=== PATIENT | male | born 2005 | race Caucasian/White ===

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

== ENCOUNTER 2024-09-29 13:13 | Outpatient (BNV) | payer OTHER, SELFPAY | END 2024-09-29 14:20 | PROVIDERS: Admitting Provider Psychiatry & Neurology Psychiatry; Responsible Provider Registered Nurse; Visit Provider Internal Medicine Cardiovascular Disease | DX: Z13.6 Encounter for screening for cardiovascular disorders (principal) | CPT/HCPCS: 93010 ==

== ENCOUNTER 2024-09-29 13:13 | Inpatient (IN) | payer OTHER, SELFPAY ==
--- NOTE | 2024-09-29 | ECG_ITS ---
Test Reason : PSYCHIATRIC MEDICATIONS Blood Pressure : */* mmHG Vent. Rate : 64 BPM Atrial Rate : 64 BPM P-R Int : 124 ms QRS Dur : 86 ms QT Int : 360 ms P-R-T Axes : -17 83 49 degrees QTcB Int : 371 ms Normal sinus rhythm with sinus arrhythmia Normal ECG When compared with ECG of 17-Mar-2023 11:50, Nonspecific T wave abnormality no longer evident in Inferior leads Referred By: Sharmila Silva Electronically Signed By: Giovany Cooper
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
--- OUTSIDE RECORDS SUMMARY | 2024-09-29 14:40 | XMS_ITS | Clinical Summary ---
Author Organization [facility] Address [address] [place] [address] Care Team Providers Care Technical Services Analyst Name Role Phone Unavailable Primary Care Provider Unavailabl e Allergies Active Allergy Reactions Criticality Noted Date Comments Risperidone 03/28/2023 Sexual dysfunction Quetiapine Other (See Comments) 04/02/2023 Aggression/anger Medications Medication Sig Dispensed Refills Start Date End Date Status Lidocaine 4 %Indications:Pain Place 1 patch onto the skin daily. 30 patch 0 04/14/2023 Active terbutaline (BRETHINE) 5 MG tabletIndications:Non- ischemic priapism Take 1 tablet (5 mg total) by mouth daily. 0 04/07/2023 Active amphetamine-dextroamph etamine (ADDERALL XR, 30MG,) 30 MG 24 hr capsuleIndications:Att ention Deficit Hyperactivity Disorder Take 1 capsule (30 mg total) by mouth daily. 30 capsule 0 05/15/2023 Active ARIPiprazole (ABILIFY) 10 MG tabletIndications:Estelle r Depressive Disorder Take 1 tablet (10 mg total) by mouth daily. 30 tablet 0 05/16/2023 Active hydrOXYzine (ATARAX) 50 MG tabletIndications:Anxi ety Take 1 tablet (50 mg total) by mouth 3 (three) times a day as needed for anxiety. 30 tablet 0 05/15/2023 Active citalopram (CeleXA) 10 MG tabletIndications:Estelle r Depressive Disorder Take 1 tablet (10 mg total) by mouth daily. 30 tablet 0 05/16/2023 Active melatonin 3 MG TABS tabletIndications:Inso mnia Take 1 tablet (3 mg total) by mouth every night at bedtime. 30 tablet 0 05/15/2023 Active Active Problems Problem Noted Date Diagnosed Date MDD (major depressive disord er), recurrent episode, moderate 05/09/2023 Bipolar disorder, current episode mixed, moderat e 04/13/2023 ADHD (attention deficit hype ractivity disorder), predominantly hyperactive impulsive type 04/03/2023 Cannabis use disorder 04/03/2023 Intermittent explosive disorder 03/29/2023 Aggression 03/28/2023 Resolved Problems Problem Noted Date Diagnosed Date Resolved Date Suicidal behavior with attempted self-injury 05/15/2023 Social History Tobacco Use Types Packs/Day Years Used Date Smoking Tobacco: Never Smokeless Tobacco: Never Tobacco Cessation:Counseling Given: Not Answered Alcohol Use Standard Drinks/Week Comments Yes 1 (1 standard drink = 0.6 oz pur e alcohol) Sex and Gender Information Value Date Recorded Sex Assigned at Male 03/27/2023 2:33 PM EST Gender Identity Male 03/27/2023 2:33 PM EST Sexual Orientation Not on file Job Start Date Occupation Industry Not on file Not on file Not on file Last Filed Vital Signs Vital Sign Reading Time Taken Comments Blood Pressure 135/83 05/15/2023 7:46 AM EST Pulse 80 05/15/2023 7:46 AM EST Temperature 36.4 ??C (97.6 ??F) 05/15/2023 7:44 AM ES T Respiratory Rate 16 05/15/2023 7:44 AM EST Oxygen Saturation 99% 05/15/2023 7:44 AM EST Inhaled Oxygen Concentration - - Weight 86.6 kg (191 lb) 05/14/2023 10:41 AM EST Height 165.1 cm (5' 5 ) 05/14/2023 11:32 AM EST Body Mass Index 31.78 05/14/2023 10:41 AM EST Plan of Treatment Health Maintenance Due Date Last Done Comments Hepatitis C Screening 2004 COVID-19 Vaccine (#1) 2004 Depression Screening 2016 Preventative Health Evaluation 2022 Influenza Vaccine (Season Ended) 2024 03/31/2021, 03/31/2021, 03/29/2020, Additional history exists DTap / Tdap / Td (7 - Td or Tdap) 02/07/2026 02/08/2016, 05/21/2008, 05/07/2006, Additional history exists Pneumococcal Vaccine Completed 05/07/2006, 11/23/2005, 2004, Additional history exists Hepatitis B Vaccines Completed 05/21/2008, 2004, 2004, Additional history exists RSV Ped < 20 months Aged Out No longe r eligible based on patient's age to complete this topic Advance Directives For more information, please contact: [phone] Latest Code Status on File Code Status Date Activated Date Inactivated Comments Full Code 05/07/2023 4:18 PM 05/15/2023 8:52 PM This code status was ascertained in the following way: per unit protocol. Code Status History Code Status Date Activated Date Inactivated Comments Full Code 03/28/2023 1:51 PM 04/13/2023 7:52 PM Thi s code status was ascertained in the following way: per unit protocol.
--- NOTE | 2024-09-29 15:24 | HO.PM.IMCN ---
History of Present Illness Data of Consult Service Date: 09/29/24 Primary Care Provider: Unknown Physician HPI Reason for consult: Medical H&P 19-year-old male with TBI/schizoaffective disorder bipolar type,GERD, Depressive DO, was admitted to [facility] with paranoia, overwhelming and irritable thoughts. Now admitted to inpatient psych for continued care. He has no medical concerns at this time, his BNP and CBC were within normal limits. QTC within normal limits EKG with normal sinus rhythm. On exam he is alert and cooperative, denies any shortness of breath, chest pain, dizziness lightheadedness or other concerning symptoms. Review of Systems Review of Systems: Denies any shortness of breath, chest pain, dizziness, lightheadedness, abdominal pain or discomfort, nausea vomiting or diarrhea [facility] Medical History (Updated 03/30/23 @ 00:03 by Meghan Lee) Bipolar I disorder Priapism TBI (traumatic brain injury) Schizoaffective disorder, bipolar type Social History Household Members: Other Household Members Other:: PT lives at longterm with peers Housing: Other Housing Other:: Long-Term Do you presently have visiting nurse or other home services: No Patient Tobacco Use Status: Never used Tobacco e-Cigarette/Vaping Use: Never Used Second Hand Smoke Exposure: No Substance Use Type: Marijuana Advance Directives: No Advance Directives Information Provided: Yes service: No Sexual orientation: Did not discuss Meds Allergies Allergy/AdvReac Type Severity Reaction Status Date / Time risperidone Allergy Unknown Verified 03/11/23 13:21 trazodone AdvReac Severe priaprism Unverified 03/15/23 16:51 priapism AdvReac Severe priapism Uncoded 03/13/23 17:13 Active Medications: Current Medications Acetaminophen (Acetaminophen 325 Mg Tablet) 650 mg PO Q6H PRN PRN Reason: Headache/Pain, Scale 1-10 Al Hydroxide/Mg Hydroxide (Magnesium Hydrox/Alum Hydrox 30 Ml Oral.Susp) 30 ml PO Q6H PRN PRN Reason: Heartburn/Nausea Hydroxyzine HCl (Hydroxyzine Hcl 25 Mg Tablet) 25 mg PO Q6H PRN PRN Reason: mild anxiety Magnesium Hydroxide (Milk Of Magnesia 30 Ml Oral.Susp) 30 ml PO DAILY PRN PRN Reason: Constipation Nicotine (Nicotine 21 Mg Patch.Td24) 21 mg TRANSDERMA DAILY SYLWIA Nicotine Polacrilex (Nicotine Polacrilex 2 Mg Gum) 4 mg BUCCAL Q2H PRN PRN Reason: Nicotine Cravings Olanzapine (Olanzapine 5 Mg Tablet) 5 mg PO Q4H PRN PRN Reason: agitation Home Medications ?Medication ?Instructions ?Recorded ?Confirmed ?Last Taken ?Type melatonin 3 mg tablet 3 mg PO BEDTIME PRN insomnia 03/11/23 03/11/23 Unknown History Physical Exam Vital Signs and Narrative: CONST: Alert and oriented, in NAD. Well nourished. Anxious HEENT: Normocephalic, atraumatic, MMM, Eyes clear, Neck supple RESP: Lungs clear, RRR even and regular HEART:,RRR, S1, S2, no edema GI:Abdomen Soft NT, ND. + BS times four :Deferred SKIN: Warm dry and intact, no visible lesions or rashes NEURO:CN II-XII Intact bilaterally, Sensation intact. Speech clear PSYCH: Flat affect, quiet Assessment and Plan (1) Bipolar I disorder: Status: Acute Plan Schizoaffective disorder/depression/suicidal ideation Plan per PsychiatryThank you for allowing me to participate in the care of this patient. Signing off at this time. Please reconsult of any acute concerns or issues arise
[2024-09-29 16:34] VITALS: BP 134/78; PULSE 70; RESP 16; TEMP 36.5; O2SAT 96
[2024-09-29 16:38] VITALS: BMI 33.5
[2024-09-29] MEDS: hydrOXYzine HCL 25 MG TABLET PO (17:26)
--- NOTE | 2024-09-29 18:23 | PC.ADMIT ---
Jean Claude is a 19 y/o male was admitted to M[facility]? at 1325 from [facility] on a 3day up 10/02 for treatment of Schizophrenia spectrum. Pt currently lives with his family.?? Per Crisis pt was having increased irritability and racing/overwhelming thoughts.? Pt reported that he had an argument with his mom and he stated that he began to yell and and said he was going to hurt himself. His mother reported that he has been medication adherent for a month. Threatened to jump off a bridge, then began throwing things in his room.? Pt reported ?I said a lot of things I didn?t mean. I know that it scared my family and I wish I didn?t do it. I did throw something out of anger but it was glass.? A&O x4. Pt was calm and cooperative with the admission process.? Mood is depressed.? Affect is anxious.? Hx of SI but no current SI. Pt denied HI. Reported he would be able to come to staff if thoughts arise.? Pt denied AVH at this time. Thought Process linear and organized.? Pt reported a recent decrease in appetite and sleep in the past few weeks. No reported weight loss.? Pt does not use tobacco or ETOH.? Tox Screen positive for THC and amphetamine, pt currently prescribed Adderall.? Last used Marijuana prior to admission.? Recent stressor - Financial issues? - trying to help contribute to family by doing [employer].? Medical Issues - GERD. Hx of appendectomy 2016.? Glucose 125 Pt is currently on Aristada injectable (441 mg / 1.6 ml) monthly, last given was 07/21/24. Pt reported that ?I missed that appointment on sunday because my dad and I got the dates mixed up.? Currently sees Raffaele Khalil at [facility].? Pt was placed on 15 minute check for safety.? Pt reported IPLOC on M5 about 2 years ago.? Allergies to quetiapine and risperdone.? Pt skin check unremarkable.
[2024-09-29 20:01] VITALS: BP 122/80; PULSE 71; TEMP 36.4; O2SAT 96
[2024-09-29] MEDS: OLANZapine 5 MG TABLET PO (22:09)
[2024-09-29] MEDS: Acetaminophen 325 MG TABLET 650 MG PO (22:47)
[2024-09-30 08:00] VITALS: BP 120/68; PULSE 98; RESP 14; O2SAT 99
[2024-09-30 08:42] VITALS: BP 120/68
[2024-09-30] MEDS: cloNIDine HCL 0.1 MG TABLET PO (08:42)
[2024-09-30] MEDS: Escitalopram Oxalate 5 MG TABLET PO (08:42)
[2024-09-30] MEDS: Dextroamphetamine/Amphetamine XR 10 MG CAP.ER.24H 30 MG PO (08:43)
[2024-09-30 08:55] LABS: Alanine Aminotransferase 25 U/L (0-40); Alkaline Phosphatase 80 U/L (39-117); Anion Gap 11 (12-20); Aspartate Amino Transferase 29 U/L (5-37); Bilirubin Total 0.4 mg/dL (0.0-1.0); Blood Urea Nitrogen 20 mg/dL (9-16); Carbon Dioxide 30 mmol/L (22-29); Chloride 105 mmol/L (96-108); Cholesterol 156 mg/dL (<200); Creatinine Clr Calc Pharmacy 154.9; Estimated Glomerular Filt Rate > 60; Glucose Random 82 mg/dL (60-115); HDL Cholesterol 35 mg/dL (>40); LDL Cholesterol Calculated 95 mg/dL (<100); Potassium 4.3 mmol/L (3.3-5.1); Sodium 142 mmol/L (135-145); Total Protein 7.7 g/dL (6.5-8.0); Triglycerides 134 mg/dL (<150)
--- NOTE | 2024-09-30 08:55 | HO.PSYCHPN ---
Subjective Subjective Date of Service: 09/30/24 Reason For Visit: crisis Subjective Notes: 3 Day Interim History: Active on unit, social with peers. attending groups. pt received Aristada IM today; denies any side effects. Patient reports feeling okay today; he reports sleeping well last night. denies SI/HI/VH/AH. 3 day up on 10/02/24. Continue current tx plan. Medication Compliance: Yes Side effects from medications: No Attending Groups: Yes Mental Status Exam Mental Status Exam Narrative: Pt is alert and oriented; behavior is cooperative and calm; dressed in casual attire; mood is described as okay ; eye contact appropriate; Speech is normal rate, volume and not pressured; thought process is organized; Thought content is on discharge; denies SI/HI/VH/AH. Diagnostics Vital Signs (24Hr): Vital Signs - 24 hr 09/29/24 16:34 09/29/24 20:01 09/30/24 08:42 Temperature 97.7 F 97.5 F Pulse Rate 70 71 Respiratory Rate 16 Blood Pressure 134/78 122/80 120/68 Pulse Oximetry 96 96 Oxygen Delivery Method Room Air Room Air BMI result Body Mass Index 33.5 Labs 09/30/24 08:04 Medications Medications Current Medications Acetaminophen (Acetaminophen 325 Mg Tablet) 650 mg PO Q6H PRN PRN Reason: Headache/Pain, Scale 1-10 Last Admin: 09/29/24 22:47 Dose: 650 mg Al Hydroxide/Mg Hydroxide (Magnesium Hydrox/Alum Hydrox 30 Ml Oral.Susp) 30 ml PO Q6H PRN PRN Reason: Heartburn/Nausea Amphetamine/Dextroamphetamine (Dextroamphetamine/Amphetamine Xr 10 Mg Cap.Er.24h) 30 mg PO DAILY SYLWIA Last Admin: 09/30/24 08:43 Dose: 30 mg Clonidine HCl (Clonidine Hcl 0.1 Mg Tablet) 0.1 mg PO DAILY SYLWIA; Protocol Last Admin: 09/30/24 08:42 Dose: 0.1 mg Escitalopram Oxalate (Escitalopram Oxalate 5 Mg Tablet) 5 mg PO DAILY SYLWIA Last Admin: 09/30/24 08:42 Dose: 5 mg Hydroxyzine HCl (Hydroxyzine Hcl 25 Mg Tablet) 25 mg PO Q6H PRN PRN Reason: mild anxiety Last Admin: 09/29/24 17:26 Dose: 25 mg Magnesium Hydroxide (Milk Of Magnesia 30 Ml Oral.Susp) 30 ml PO DAILY PRN PRN Reason: Constipation Nicotine (Nicotine 21 Mg Patch.Td24) 21 mg TRANSDERMA DAILY SYLWIA Nicotine Polacrilex (Nicotine Polacrilex 2 Mg Gum) 4 mg BUCCAL Q2H PRN PRN Reason: Nicotine Cravings Non-Formulary Medication (Aripiprazole Lauroxil [Aristada]) 441 mg IM Q28D SYLWIA Olanzapine (Olanzapine 5 Mg Tablet) 5 mg PO Q4H PRN PRN Reason: agitation Last Admin: 09/29/24 22:09 Dose: 5 mg Allergies Allergies Allergy/AdvReac Type Severity Reaction Status Date / Time risperidone Allergy Unknown Verified 03/11/23 13:21 trazodone AdvReac Severe priaprism Verified 09/29/24 17:15 Assessment & Plan Assessment & Plan (1) Bipolar I disorder: Status: Acute Code(s): F31.9 - Bipolar disorder, unspecified (2) PTSD (post-traumatic stress disorder): Status: Acute Code(s): F43.10 - Post-traumatic stress disorder, unspecified (3) TBI (traumatic brain injury): Status: Acute Code(s): S06.9XAA - Unspecified intracranial injury with loss of consciousness status unknown, initial encounter Plan Patient is a 19-year-old male with history of bipolar disorder, PTSD, TBI who self presented to ER due to irritability and overwhelming thoughts secondary to life stressors. Plan: CV 15 minute safety checks Continue home medications obtain collateral encourage groups discharge planning 09/30: Active on unit, social with peers. attending groups. pt received Aristada IM today; denies any side effects. Patient reports feeling okay today; he reports sleeping well last night. denies SI/HI/VH/AH. 3 day up on 10/02/24. Continue current tx plan. Patient educated on: diagnosis and medication risk/benefits Reason for continued inpatient stay Substantial Risk for: med/psych decompensation Time Spent With Patient Time: Total time managing care of this patient today _20___ minutes.
[2024-09-30 08:57] LABS: Estimated Average Glucose 100 mg/dL; Hemoglobin A1c % 5.1 % (<6.0); Total Hemoglobin (HGBA1C) 4205.9463 umol/L
[2024-09-30] MEDS: hydrOXYzine HCL 25 MG TABLET PO (14:25)
[2024-09-30] MEDS: OLANZapine 5 MG TABLET PO (17:45)
[2024-10-01 08:00] VITALS: BP 119/81; PULSE 59; RESP 16; TEMP 36.3; O2SAT 99
[2024-10-01] MEDS: Dextroamphetamine/Amphetamine XR 10 MG CAP.ER.24H 30 MG PO (08:32)
[2024-10-01] MEDS: cloNIDine HCL 0.1 MG TABLET PO (08:32)
[2024-10-01] MEDS: Escitalopram Oxalate 5 MG TABLET PO (08:32)
--- NOTE | 2024-10-01 09:22 | HO.PSYCHPN ---
Subjective Subjective Date of Service: 10/01/24 Reason For Visit: crisis Subjective Notes: 3 Day Interim History: Active on unit, social with peers. attending groups. Patient reports feeling good today; pt stated, I'm feeling better and ready to go home . denies SI/HI/VH/AH. 3 day up on 10/02/24. Pt reports he plans on following up with his outpatient providers. Medication Compliance: Yes Side effects from medications: No Attending Groups: Yes Mental Status Exam Mental Status Exam Narrative: Pt is alert and oriented; behavior is cooperative and calm; dressed in casual attire; mood is described as good ; eye contact appropriate; Speech is normal rate, volume and not pressured; thought process is organized; Thought content is on discharge; denies SI/HI/VH/AH. Diagnostics Vital Signs (24Hr): Vital Signs - 24 hr 10/01/24 08:00 Temperature 97.4 F Pulse Rate 59 Respiratory Rate 16 Blood Pressure 119/81 Pulse Oximetry 99 Oxygen Delivery Method Room Air BMI result Body Mass Index 33.5 Labs 09/30/24 08:04 Labs: Laboratory Results - last 48 hr 09/30/24 08:04 Sodium 142 Potassium 4.3 Chloride 105 Carbon Dioxide 30 H Anion Gap 11 L BUN 20 H Creatinine 0.79 Estim Creat Clear Calc 154.9 Estimated GFR > 60 Random Glucose 82 Estimat Average Glucose 100 Hemoglobin A1c % 5.1 Calcium 10.0 Total Bilirubin 0.4 AST 29 ALT 25 Alkaline Phosphatase 80 Total Protein 7.7 Albumin 5.0 Triglycerides 134 Cholesterol 156 LDL Cholesterol, Calc 95 HDL Cholesterol 35 L Medications Medications Current Medications Acetaminophen (Acetaminophen 325 Mg Tablet) 650 mg PO Q6H PRN PRN Reason: Headache/Pain, Scale 1-10 Last Admin: 09/29/24 22:47 Dose: 650 mg Al Hydroxide/Mg Hydroxide (Magnesium Hydrox/Alum Hydrox 30 Ml Oral.Susp) 30 ml PO Q6H PRN PRN Reason: Heartburn/Nausea Amphetamine/Dextroamphetamine (Dextroamphetamine/Amphetamine Xr 10 Mg Cap.Er.24h) 30 mg PO DAILY SYLWIA Last Admin: 10/01/24 08:32 Dose: 30 mg Clonidine HCl (Clonidine Hcl 0.1 Mg Tablet) 0.1 mg PO DAILY SYLWIA; Protocol Last Admin: 10/01/24 08:32 Dose: 0.1 mg Escitalopram Oxalate (Escitalopram Oxalate 5 Mg Tablet) 5 mg PO DAILY SYLWIA Last Admin: 10/01/24 08:32 Dose: 5 mg Hydroxyzine HCl (Hydroxyzine Hcl 25 Mg Tablet) 25 mg PO Q6H PRN PRN Reason: mild anxiety Last Admin: 09/30/24 14:25 Dose: 25 mg Magnesium Hydroxide (Milk Of Magnesia 30 Ml Oral.Susp) 30 ml PO DAILY PRN PRN Reason: Constipation Nicotine Polacrilex (Nicotine Polacrilex 2 Mg Gum) 4 mg BUCCAL Q2H PRN PRN Reason: Nicotine Cravings Olanzapine (Olanzapine 5 Mg Tablet) 5 mg PO Q4H PRN PRN Reason: agitation Last Admin: 09/30/24 17:45 Dose: 5 mg Allergies Allergies Allergy/AdvReac Type Severity Reaction Status Date / Time risperidone Allergy Unknown Verified 03/11/23 13:21 trazodone AdvReac Severe priaprism Verified 09/29/24 17:15 Assessment & Plan Assessment & Plan (1) Bipolar I disorder: Status: Acute Code(s): F31.9 - Bipolar disorder, unspecified (2) PTSD (post-traumatic stress disorder): Status: Acute Code(s): F43.10 - Post-traumatic stress disorder, unspecified (3) TBI (traumatic brain injury): Status: Acute Code(s): S06.9XAA - Unspecified intracranial injury with loss of consciousness status unknown, initial encounter Plan Patient is a 19-year-old male with history of bipolar disorder, PTSD, TBI who self presented to ER due to irritability and overwhelming thoughts secondary to life stressors. Plan: CV 15 minute safety checks Continue home medications obtain collateral encourage groups discharge planning 09/30: Active on unit, social with peers. attending groups. pt received Aristada IM today; denies any side effects. Patient reports feeling okay today; he reports sleeping well last night. denies SI/HI/VH/AH. 3 day up on 10/02/24. Continue current tx plan. 10/01: Active on unit, social with peers. attending groups. Patient reports feeling good today; pt stated, I'm feeling better and ready to go home . denies SI/HI/VH/AH. 3 day up on 10/02/24. Pt reports he plans on following up with his outpatient providers. Patient educated on: diagnosis and medication risk/benefits Reason for continued inpatient stay Substantial Risk for: stable for discharge Time Spent With Patient Time: Total time managing care of this patient today _20___ minutes.
[2024-10-01] MEDS: hydrOXYzine HCL 25 MG TABLET PO ×2 (14:09→20:11)
[2024-10-01 20:00] VITALS: BP 142/81; PULSE 75; RESP 18; TEMP 37; O2SAT 98
[2024-10-01] MEDS: OLANZapine 5 MG TABLET PO (20:39)
[2024-10-01] MEDS: Acetaminophen 325 MG TABLET 650 MG PO (20:40)
[2024-10-02 07:05] VITALS: BP 125/87; PULSE 62; RESP 14; TEMP 36.5; O2SAT 99
[2024-10-02] MEDS: Escitalopram Oxalate 5 MG TABLET PO (08:17)
[2024-10-02] MEDS: cloNIDine HCL 0.1 MG TABLET PO (08:17)
[2024-10-02] MEDS: Dextroamphetamine/Amphetamine XR 10 MG CAP.ER.24H 30 MG PO (08:18)
--- NOTE | 2024-10-02 09:55 | PM.PSYDC ---
DS: Providers Provider Date of Service: 10/02/24 Date of admission: 09/29/24 13:13 Date of discharge: 10/02/24 Primary care physician: Unknown Physician Admitting clinician: Sharmila Silva Attending physician on admission: Neftali Palma Consults: 09/29/24 13:18 Consult to Hospitalist Routine Comment: [place]ing [place] [facility] [place] Reason For Exam: new admit, H&P Attending physician on discharge: Neftali Palma Discharging clinician: Sharmila Silva DS: Diagnosis Discharge Diagnosis (1) Bipolar I disorder: Status: Acute (2) PTSD (post-traumatic stress disorder): Status: Acute (3) TBI (traumatic brain injury): Status: Acute DS: Medications Discharge Medications Home Medications: Home Medications ?Medication ?Instructions ?Recorded ?Confirmed aripiprazole lauroxil 441 mg/1.6 441 mg IM Q4W 09/29/24 09/29/24 mL suspension, ext.rel. IM syringe (Aristada) citalopram 10 mg tablet 10 mg PO QAM 09/29/24 09/29/24 clonidine HCl 0.1 mg tablet 0.1 mg PO DAILY 09/29/24 09/29/24 dextroamphetamine-amphetamine ER 1 cap PO QAM 09/29/24 09/29/24 30 mg 24hr capsule,extend release (Adderall XR) Previous Rx's ?Medication ?Instructions ?Recorded hydroxyzine HCl 25 mg tablet 25 mg PO BID PRN mild anxiety 30 10/01/24 days #60 tabs Mental Status Exam Mental Status Exam Narrative: Pt is alert and oriented; behavior is cooperative and calm; dressed in casual attire; mood is described as good ; eye contact appropriate; Speech is normal rate, volume and not pressured; thought process is organized; Thought content is on discharge; denies SI/HI/VH/AH. Data Data Completed and Pending Completed studies during hospitalization [Text1]: 09/30/24 08:04 Sodium 142 Potassium 4.3 Chloride 105 Carbon Dioxide 30 H Anion Gap 11 L BUN 20 H Creatinine 0.79 Estim Creat Clear Calc 154.9 Estimated GFR > 60 Random Glucose 82 Estimat Average Glucose 100 Hemoglobin A1c % 5.1 Calcium 10.0 Total Bilirubin 0.4 AST 29 ALT 25 Alkaline Phosphatase 80 Total Protein 7.7 Albumin 5.0 Triglycerides 134 Cholesterol 156 LDL Cholesterol, Calc 95 HDL Cholesterol 35 L DS: Summary Hospital Course Hospital Course: Patient is a 19-year-old male with history of bipolar disorder, PTSD, TBI who self presented to ER due to irritability and overwhelming thoughts secondary to life stressors. Per crisis report, patient reports he has been feeling overwhelmed lately with his life stressors. He states he is more irritable than usual and is presenting to the hospital for further psychiatric assistance. Patient stated, I was angry with my mother and we had a little argument. I was yelling and I said I was going to hurt myself. My mom called the ambulance. I haven't been sleeping much for the last few weeks. I haven't had much of an appetite either . Collateral obtained from patient's mother, who reports he takes his medications when he wants and missed his IM that was due on Sunday. She reports pt gets agitated and threatened to kill himself by jumping off a bridge. Prior to admission he was throwing items in his room, which prompted her to call 911. During admission assessment, patient presents alert and oriented x3. Calm and cooperative. Patient reports feeling a lot of anger building up and being rude to people lately . Patient stated, I broke my door of my closet before coming in here. I have pent-up thoughts of things that I should have done or did not do. Like my dad is working a lot and I wish I could help him financially . Future oriented. Patient stated, I'm thinking about either go into ST or being a nurse ob . Denies SI/HI/VH/AH. Patient reports poor sleep. Denies nightmares. Patient reports he smokes marijuana daily; Denies any other substance use. Utox positive for cannabis. Denies history of substance abuse treatment. Denies history of SA/SIB. Patient reports being medication compliant. Patient stated, I don't want my meds changed. I just want to learn how to deal with my temper and go to groups . Plan: CV 15 minute safety checks Continue home medications obtain collateral encourage groups discharge planning Active on unit, social with peers. attending groups. pt received Aristada IM today; denies any side effects. Patient reports feeling okay today; he reports sleeping well last night. denies SI/HI/VH/AH. 3 day up on 10/02/24. Continue current tx plan. Active on unit, social with peers. attending groups. Patient reports feeling good today; pt stated, I'm feeling better and ready to go home . denies SI/HI/VH/AH. 3 day up on 10/02/24. Pt reports he plans on following up with his outpatient providers. Status at Discharge Cognitive/behavioral status at discharge: Patient has insight and demonstrates good judgment in terms of wanting to pursue treatment. Patient has a safety plan that includes presenting to the closest ER or calling 911 if feeling unsafe. Functional status at discharge: independent ambulation Overall status at discharge: patient is back to baseline Time Spent with Patient Time attestation: Total time managing care of this patient today _20___ minutes. Time spent: Less than 30 minutes Discharge Plan Discharge Anticipated Discharge Date/Time: 10/02/24 10:00 Patient Disposition: Home, Self-Care Discharge Diagnosis: Bipolar d/o, PTSD Referrals: Raffaele Khalil ([facility]) [Other] - 11/20/24 2:45 pm Referral Note: Follow up with your outpatient providers. In person appointment [facility] [Provider Group] - 1 Week Referral Note: 09-30-24 [facility] was added to patients chart. Please call [phone] to schedule a follow up appt within 7-10 days of discharge. No release or PCP on file. Discharge Medications: New hydroxyzine HCl 25 mg Tablet 25 mg PO BID PRN (Reason: mild anxiety) 30 Days Qty: 60 0RF Continued clonidine HCl 0.1 mg tablet 0.1 mg PO DAILY citalopram 10 mg tablet 10 mg PO QAM dextroamphetamine-amphetamine [Adderall XR] 30 mg capsule,extended release 24hr 1 cap PO QAM Aristada 441 mg/1.6 mL suspension,extended rel syring 441 mg IM Q4W Discharge Orders: Discharge Order (Routine); Ordered 10/02/24 Ordered By: Sharmila Silva Diet: Regular diet Activity on Discharge: As tolerated Stand Alone Forms: Patient Portal Discharge page, Community Support Print Language: Hebrew Care Plan Goals: Maintain mood and safe behaviors Take medications as prescribed Practice coping skills Continue with outpatient providers and reach out to them as needed Health Concerns: Mood stability and behaviors Plan of Treatment: Follow up with your PCP, psychiatric provider and other outpatient providers regarding above concerns Take medications as prescribed; next Aristada IM due 4 weeks from 09/30/24. Assessment: Patient has insight and demonstrates good judgment in terms of wanting to pursue treatment. Patient has a safety plan that includes presenting to the closest ER or calling 911 if feeling unsafe.
== END 2024-10-02 09:50 | disposition home or self-care (01) | DRG 753 ==
PROVIDERS: Admitting Provider Psychiatry & Neurology Psychiatry; Responsible Provider Registered Nurse; Visit Provider Psychiatry & Neurology Psychiatry
DX: F31.9 Bipolar disorder, unspecified (principal); F43.10 Post-traumatic stress disorder, unspecified; Z87.820 Personal history of traumatic brain injury; Z79.899 Other long term (current) drug therapy
CPT/HCPCS: 36415; 80053; 80061; 83036; 93005

== ENCOUNTER → 2024-09-29 13:13 | Outpatient (BNV) | payer OTHER, SELFPAY | PROVIDERS: Admitting Provider Psychiatry & Neurology Psychiatry; Responsible Provider Registered Nurse; Visit Provider Nurse Practitioner Family | DX: F31.9 Bipolar disorder, unspecified (principal) | CPT/HCPCS: 99221 ==

== ENCOUNTER → 2024-09-29 13:13 | Outpatient (BNV) | payer OTHER, SELFPAY | PROVIDERS: Admitting Provider Psychiatry & Neurology Psychiatry; Responsible Provider Registered Nurse; Visit Provider Registered Nurse | DX: F31.9 Bipolar disorder, unspecified (principal); F43.11 Post-traumatic stress disorder, acute; Z87.820 Personal history of traumatic brain injury | CPT/HCPCS: 90792; 99231; 99232; 99238 ==